=== PATIENT | female | born 1995 | race Caucasian/White ===

== ENCOUNTER 2018-01-03 18:59 | Emergency (ER) | END 2018-01-03 22:25 | disposition home or self-care (01) ==

== ENCOUNTER 2018-10-11 10:50 | Day surgery (SDC) | END 2018-10-11 19:40 | disposition home or self-care (01) ==

== ENCOUNTER 2018-10-24 08:33 | Emergency (ER) | END 2018-10-24 11:25 | disposition home or self-care (01) ==